=== PATIENT | male | born 1945 | race Caucasian/White ===

== ENCOUNTER 2020-07-22 05:01 | Observation (INO) ==
[2020-07-22 05:35] LABS: Basophils % 0.3 %; Red Cell Distribution Width 13.2 % (11.5-14.5); Segmented Neutrophils % 66.3 %
[2020-07-22 05:36] LABS: Eosinophils # 0.1 K/mcL (0.0-0.6); Eosinophils % 1.7 %; Hematocrit 42.5 % (37.5-50.1); Hemoglobin 13.9 g/dL (12.9-16.9); Immature Granulocytes % 0.3 % (0-4); Immature Platelets 3.3 % (1.1-6.1); Lymphocytes # 0.8 K/mcL (0.6-4.6); Lymphocytes % 22.7 %; Mean Corpuscular HGB Conc 32.7 g/dL (31.6-35.5); Mean Corpuscular Volume 91.8 fL (83.0-100.0); Mean Platelet Volume 10.1 fL (9.4-12.4); Monocytes # 0.3 K/mcL (0.0-1.3); Monocytes % 8.7 %; Neutrophils # 2.4 K/mcL (1.6-8.9); Platelet Count 144 K/mcL (140-400); Red Blood Count 4.63 M/mcL (4.19-5.50); White Blood Count 3.6 K/mcL (4.3-11.1)
[2020-07-22 05:52] LABS: BUN/Creatinine Ratio 13 (6-26); Blood Urea Nitrogen 11 mg/dL (8-23); Calcium 8.4 mg/dL (8.6-10.3); Carbon Dioxide 21 mEq/L (23-29); Chloride 101 mEq/L (98-107); Glucose 201 mg/dL (70-105); Magnesium 1.7 mg/dL (1.6-2.6); Osmolality,Calculated 285 (280-300); Potassium 3.4 mEq/L (3.5-5.1); Sodium 135 mEq/L (136-145); eGFR For African Americans > 60 (> 60); eGFR For Non-African Americans > 60 (> 60)
[2020-07-22 06:56] LABS: Bilirubin,Urine Negative (Negative); Blood,Urine Negative (Negative); Clarity,Urine Clear (Clear); Color,Urine Yellow (Yellow); Glucose,Urine (UA) Normal (Normal); Ketones,Urine 20 mg/dL (Negative); Leukocyte Esterase,Urine Negative (Negative); Mucus,Urine Few per lpf (None-Few); Nitrite,Urine Negative (Negative); PH,Urine 5.5 pH Units (5.0-8.0); Protein,Urine 50 mg/dL (Neg-Trace); RBC,Urine 0-3 per hpf (0-3); Specific Gravity,Urine 1.025 (1.010-1.025); Urobilinogen,Urine Normal (Normal); WBC,Urine 0-3 per hpf (0-3)
[2020-07-22] MEDS ORDERED: levETIRAcetam 250 MG TABLET PO ONE (06:59)
[2020-07-22] MEDS ORDERED: Aspirin 81 MG TAB.CHEW PO STA (07:36)
[2020-07-22] MEDS ORDERED: Naloxone 0.4 MG/ML INJ IVP PRN (07:36)
[2020-07-22] MEDS ORDERED: Ondansetron 4 MG/2 ML VIAL IVP PRN (07:36)
[2020-07-22] MEDS ORDERED: *HR* LORazepam 2 MG/ML VIAL IVP PRN (07:38)
[2020-07-22 08:54] LABS: Amphetamine Screen,Urine Negative ng/mL (Cutoff=1000); Barbiturate Screen,Urine Negative ng/mL (Cutoff=200); Benzodiazepines Screen,Urine Negative ng/mL (Cutoff=200); Cannabinoid Screen,Urine Negative ng/mL (Cutoff = 50); Cocaine Screen,Urine Negative ng/mL (Cutoff= 300); Opiate Screen,Urine Negative ng/mL (Cutoff=300); Phencyclidine Screen,Urine Negative ng/mL (Cutoff=25)
[2020-07-22] MEDS ORDERED: Potassium Chloride Elixir 20 MEQ/15 ML UDC PO ONE (15:58)
[2020-07-22] MEDS: levETIRAcetam 250 MG TABLET PO SCH (16:58)
[2020-07-22] MEDS ORDERED: Fluticasone Propionate Nasal 50 MCG/SPRAY BOTTLE NS PRN (21:19)
[2020-07-22] MEDS: Zinc Sulfate 220 MG CAPSULE PO SCH (21:57)
[2020-07-22] MEDS: Ascorbic Acid 500 MG TABLET PO SCH (21:57)
[2020-07-23] MEDS: levETIRAcetam 250 MG TABLET PO SCH ×2 (05:37→17:12)
[2020-07-23 06:02] LABS: Basophils % 0.2 %; Eosinophils # 0.1 K/mcL (0.0-0.6); Eosinophils % 1.5 %; Hematocrit 42.5 % (37.5-50.1); Immature Granulocytes % 0.2 % (0-4); Lymphocytes % 23.1 %; Mean Corpuscular HGB Conc 32.9 g/dL (31.6-35.5); Mean Corpuscular Hemoglobin 30.8 pg (28.0-33.3); Mean Corpuscular Volume 93.4 fL (83.0-100.0); Mean Platelet Volume 10.3 fL (9.4-12.4); Monocytes # 0.5 K/mcL (0.0-1.3); Monocytes % 11.9 %; Neutrophils # 2.6 K/mcL (1.6-8.9); Platelet Count 154 K/mcL (140-400); Red Blood Count 4.55 M/mcL (4.19-5.50); Red Cell Distribution Width 13.3 % (11.5-14.5); Segmented Neutrophils % 63.1 %; White Blood Count 4.1 K/mcL (4.3-11.1)
[2020-07-23 06:17] LABS: Chol/HDL Ratio 4.2 (0-4.9)
[2020-07-23 06:18] LABS: BUN/Creatinine Ratio 12 (6-26); Blood Urea Nitrogen 10 mg/dL (8-23); Calcium 8.5 mg/dL (8.6-10.3); Carbon Dioxide 22 mEq/L (23-29); Chloride 103 mEq/L (98-107); Glucose 151 mg/dL (70-105); Osmolality,Calculated 284 (280-300); Potassium 3.8 mEq/L (3.5-5.1); Sodium 136 mEq/L (136-145); eGFR For African Americans > 60 (> 60); eGFR For Non-African Americans > 60 (> 60)
[2020-07-23 07:38] LABS: Estimated Average Glucose 174 mg/dl; Hemoglobin A1C 7.7 %
[2020-07-23 08:39] LABS: ABG Base Excess 0 mEq/L (-2 to 3); ABG HCO3 24 mEq/L (21-27); ABG Oxygen Saturation 95 % (95-98); ABG PCO2 37 mmHg (35-45); ABG PH 7.42 pH Units (7.32-7.45); ABG PO2 74 mmHg (85-104); ABG TCO2 25 mEq/L (20-26)
[2020-07-23 08:45] LABS: INR 0.9; Prothrombin Time 10.8 Seconds (9.4-12.1)
[2020-07-23 08:48] LABS: Activated Partial Thrombo Time 24.2 Seconds (26.0-36.0)
[2020-07-23] MEDS: Ascorbic Acid 500 MG TABLET PO SCH ×2 (08:52→20:31)
[2020-07-23] MEDS: Multivit/Ca/Min/Fe/FA 1 TAB TABLET PO SCH (08:52)
[2020-07-23] MEDS: Zinc Sulfate 220 MG CAPSULE PO SCH ×2 (08:53→20:32)
[2020-07-23] MEDS: Calcium Gluconate 1gm/50mL 1 GM/50 ML BAG IVPB SCH ×2 (08:55→10:00)
[2020-07-23 08:57] LABS: C-Reactive Protein < 5 mg/L (Less than 10); Lactate Dehydrogenase 175 Units/L (140-271); Magnesium 1.8 mg/dL (1.6-2.6); Phosphorous 2.7 mg/dL (2.7-4.5)
[2020-07-23 09:15] LABS: Ferritin 203 ng/mL (20-250)
[2020-07-24] MEDS: levETIRAcetam 250 MG TABLET PO SCH ×2 (05:33→18:19)
[2020-07-24 05:36] LABS: Basophils % 0.2 %; Eosinophils # 0.1 K/mcL (0.0-0.6); Eosinophils % 2.3 %; Hematocrit 43.2 % (37.5-50.1); Hemoglobin 13.9 g/dL (12.9-16.9); Immature Granulocytes % 0.5 % (0-4); Lymphocytes % 21.8 %; Mean Corpuscular HGB Conc 32.2 g/dL (31.6-35.5); Mean Corpuscular Hemoglobin 29.6 pg (28.0-33.3); Mean Corpuscular Volume 91.9 fL (83.0-100.0); Mean Platelet Volume 10.4 fL (9.4-12.4); Monocytes # 0.5 K/mcL (0.0-1.3); Monocytes % 11.3 %; Neutrophils # 2.8 K/mcL (1.6-8.9); Platelet Count 155 K/mcL (140-400); Red Cell Distribution Width 13.3 % (11.5-14.5); Segmented Neutrophils % 63.9 %; White Blood Count 4.4 K/mcL (4.3-11.1)
[2020-07-24 05:57] LABS: BUN/Creatinine Ratio 15 (6-26); Blood Urea Nitrogen 13 mg/dL (8-23); Calcium 8.5 mg/dL (8.6-10.3); Carbon Dioxide 22 mEq/L (23-29); Chloride 104 mEq/L (98-107); Glucose 140 mg/dL (70-105); Magnesium 1.9 mg/dL (1.6-2.6); Osmolality,Calculated 284 (280-300); Potassium 3.8 mEq/L (3.5-5.1); Sodium 136 mEq/L (136-145); eGFR For African Americans > 60 (> 60); eGFR For Non-African Americans > 60 (> 60)
[2020-07-24] MEDS: Zinc Sulfate 220 MG CAPSULE PO SCH ×2 (07:58→19:53)
[2020-07-24] MEDS: Ascorbic Acid 500 MG TABLET PO SCH ×2 (07:58→19:53)
[2020-07-24] MEDS: Multivit/Ca/Min/Fe/FA 1 TAB TABLET PO SCH (07:59)
[2020-07-24] MEDS: *HR* Enoxaparin 40 MG/0.4 ML SYRINGE SQ SCH (18:18)
[2020-07-25] MEDS: *HR* Enoxaparin 40 MG/0.4 ML SYRINGE SQ SCH (05:25)
[2020-07-25] MEDS: levETIRAcetam 250 MG TABLET PO SCH (05:25)
[2020-07-25] MEDS: Zinc Sulfate 220 MG CAPSULE PO SCH (09:22)
[2020-07-25] MEDS: Multivit/Ca/Min/Fe/FA 1 TAB TABLET PO SCH (09:22)
[2020-07-25] MEDS: Ascorbic Acid 500 MG TABLET PO SCH (09:22)
[2020-07-25 10:54] VITALS: BP 152/97
== END 2020-07-25 12:27 | disposition home or self-care (01) ==
LOC: EMEROOARM 05:01 → 2NENU 05:01 → SUATTDRO 08:10 → 2NENU 09:51
PROVIDERS: ADMIT Internal Medicine; ATTEND Student in an Organized Health Care Education/Training Program